=== PATIENT | male | born 1985 | race African-American/Black ===

== ENCOUNTER 2016-09-08 08:08 | Day surgery (SDC) | payer OTHER ==
[2016-09-03 15:33] VITALS: BMI 29.7
[~2016-09-08 08:08] MED LIST: LACTATED RINGERS 1,000 ML IV SCH
[2016-09-08 08:24] VITALS: RESP 16; TEMP 97.5
[2016-09-08] MEDS ORDERED: LIDOCAINE 1% 20 ML VIAL (10MG/ML) FOR IV START INTRADERMA ONE (08:24)
[2016-09-08] MEDS ORDERED: fentaNYL (PF) 50 MCG/ML 2 ML AMP ONE (09:13)
[2016-09-08] MEDS ORDERED: MIDAZOLAM 2 MG/2 ML VIAL ONE (09:13)
[2016-09-08] MEDS ORDERED: PROPOFOL 10 MG/ML 20 ML VIAL IV ONE (09:13)
[2016-09-08 09:42] VITALS: BP 128/88; PULSE 68
--- NOTE | 2016-09-08 10:24 | P.PCN ---
Date of Procedure: 09/08/16 Procedure(s) Performed: Procedure: Esophagogastroduodenoscopy and biopsy. Preoperative diagnosis: Dyspepsia. Postoperative diagnosis: 1. Very small sliding hiatal hernia with no obvious esophagitis or complicated reflux disease. 2. Minimal antral gastritis. 3. Multiple biopsies obtained from the duodenum, antrum and esophagus. Preparation and sedation: Were provided by anesthesia. Brief clinical history: The patient is a 31-year-old male who I have evaluated in the office last April for symptoms of dyspepsia with epigastric pain and frequent belching that he had for around 5 years. He has been on acid suppressive medications for reflux for several years with recurrence of his symptoms when he stops his medications. There was no alarm symptoms. I scheduled this evaluation to assess for esophagitis, complicated reflux disease or other pathology and to guide therapy. Procedure: With the patient on his left lateral decubitus position and after informed consent and adequate sedation, I passed the Olympus-GIF 160 video upper endoscope the cricopharyngeus down the esophagus. GE junction was around 38 cm from the incisors and there was a very small sliding hiatal hernia. The esophagus did not show any erosions, ulcers, strictures or Young's esophagus. The endoscope was then passed into the stomach which was insufflated with air and inspected in detail including the retroflex view in the cardia. There is minimal mottling and erythema in the antrum but no ulcers or erosions. Pyloric channel, duodenal bulb, post bulbar area and descending duodenum appeared within normal limits. Because of his symptoms, I obtained multiple biopsies from the duodenum, antrum and esophagus then the endoscope was withdrawn. The patient tolerated the procedure well. Plan: The patient was reassured. Will await biopsy results. Would schedule follow-up visit with me in the office in few weeks and will try to make additional recommendations based on his course and biopsy results. I will keep you updated on his progress.
== END 2016-09-08 09:59 | disposition home or self-care (01) ==
LOC: ORWHC2ENDO 08:08
DX: K21.0 Gastro-esophageal reflux disease with esophagitis (principal); K44.9 Diaphragmatic hernia without obstruction or gangrene; K29.50 Unspecified chronic gastritis without bleeding; F32.9 Major depressive disorder, single episode, unspecified; Z79.899 Other long term (current) drug therapy
CPT/HCPCS: 88305; 88342; 43239; J2250; J3010; J2704

== ENCOUNTER → 2016-10-03 | Outpatient (CLI) | payer OTHER ==
--- NOTE | 2016-10-06 07:52 | MR ---
EXAMINATION TYPE: MR schulz wo con DATE OF EXAM: 10/03/2016 8:00 PM COMPARISON: NONE HISTORY: CERVICAL PAIN, LUMBAR PAIN CONTRAST: 0 mL intravenous MultiHance. TECHNIQUE: Multiplanar, multisequence images of the lumbar spine were acquired. FINDINGS: Cord terminates at the L1 level. There is disc desiccation L4-5 L5-S1. L5-S1: Disc bulge is present with mild epidural space impingement. No thecal sac impingement is evide nt. No spinal canal stenosis is present. Neural foramen are patent. No spinal canal stenosis. No fo raminal stenosis. . L4-L5: Broad-based disc bulge is present. There is anterior thecal sac flattening. No AP spinal canal stenosis is present. Neural foramen are patent. Facet hypertrophy is present. L3-L4: No significant disc bulge or disc herniation. No spinal canal stenosis. No foraminal stenosi s. . L2-L3: No significant disc bulge or disc herniation. No spinal canal stenosis. No foraminal stenosi s. . L1-L2: No significant disc bulge or disc herniation. No spinal canal stenosis. No foraminal stenosi s. . T12-L1: No significant disc bulge or disc herniation. No spinal canal stenosis. No foraminal stenos is. . IMPRESSION: 1. Disc desiccation and disc bulging L4-5 L5-S1. No thecal sac impingement or nerve root impingement is evident. 2. Facet hypertrophy L4-5. EXAMINATION TYPE: MR jazz cordon con DATE OF EXAM: 10/03/2016 8:00 PM COMPARISON: NONE HISTORY: CERVICAL PAIN, LUMBAR PAIN CONTRAST: Performed utilizing 0 mL intravenous MultiHance gadolinium contrast. TECHNIQUE: Multiplanar multiecho imaging on a 3.0 Yudith magnet is performed through the cervical spin e. Some motion artifact is present. FINDINGS: The craniovertebral junction is normal. There is some crowding with tonsillar and sent to the foramen magnum, a variation which is within normal limits. Vertebral body alignment is straighten ed with some slight kyphosis in the upper cervical spine. C7-T1: No focal disc herniation or significant disc bulge is evident. No spinal canal stenosis is p resent. Mild left foraminal narrowing is present. C6-7: No focal disc herniation or significant disc bulge is evident. No spinal canal stenosis is pre sent. Mild left foraminal narrowing is present. C5-6: No focal disc herniation or significant disc bulge is evident. No spinal canal stenosis or anne ral foraminal stenosis is present. C4-5: Broad-based disc bulge is present with moderate anterior thecal sac compression. This is slight ly greater into the right paracentral region. No AP spinal canal stenosis present. Cord contact is pr esent. No cord deformity is evident. There is moderate right foraminal narrowing from disc bulge. Lef t foramen is patent.. C3-4: No focal disc herniation or significant disc bulge is evident. No spinal canal stenosis or anne ral foraminal stenosis is present. C2-3: No focal disc herniation or significant disc bulge is evident. No spinal canal stenosis or anne ral foraminal stenosis is present. IMPRESSIONS: 1. Mild disc bulging greatest at C4-5. 2. Scattered mild areas of foraminal narrowing discussed above. More moderate foraminal narrowing fro m disc bulge is present C4-5
== END | disposition home or self-care (01) ==
LOC: RADMRIMAIN 18:11
PROVIDERS: ATTEND Psychiatry & Neurology Neurology
DX: M99.71 Connective tissue and disc stenosis of intervertebral foramina of cervical region (principal); M50.221 Other cervical disc displacement at C4-C5 level; M51.27 Other intervertebral disc displacement, lumbosacral region
CPT/HCPCS: 72141; 72148

== ENCOUNTER → 2017-10-06 | Outpatient (CLI) | payer OTHER | END | disposition home or self-care (01) | LOC: CPPFTMAIN 10:51 | PROVIDERS: ATTEND Family Medicine | DX: J98.01 Acute bronchospasm (principal) | CPT/HCPCS: 94010; 94060; 94726; 94729 ==

== ENCOUNTER → 2017-10-29 | Outpatient (CLI) | payer OTHER ==
--- NOTE | 2017-10-29 22:04 | CT ---
EXAMINATION TYPE: CT chest w con DATE OF EXAM: 10/29/2017 COMPARISON: NONE HISTORY: Abnormal pulmonary function test. CT DLP: 311.8 mGycm Automated exposure control for dose reduction was used. CONTRAST: CT scan of the chest is performed with IV Contrast, patient injected with 100 mL of Isovue 300. FINDINGS: LUNGS: The lungs are grossly clear, there is no concerning parenchymal mass or nodule identified. T here is no pleural effusion or pneumothorax seen. The tracheobronchial tree is patent. MEDIASTINUM: There are no greater than 1 cm hilar or mediastinal lymph nodes. No pericardial effusi on is seen. OTHER: No additional significant abnormality is seen. IMPRESSION: No acute process.
== END | disposition home or self-care (01) ==
LOC: RADCTMAIN 10-23 19:15
PROVIDERS: ATTEND Family Medicine
DX: R94.2 Abnormal results of pulmonary function studies (principal)
CPT/HCPCS: 71260; Q9967

== ENCOUNTER → 2018-02-15 | Outpatient (CLI) | payer OTHER ==
--- NOTE | 2018-02-15 16:45 | FL ---
EXAMINATION: Cervical and Thoracic Esophagram DATE OF EXAM: 02/15/2018 CLINICAL INDICATION: 32-year-old male dysphagia and reflux, burning in throat. Recent ENT scope showe d inflammation. COMPARISON: None Total Fluoroscopy Time: 1 minute 31 seconds. Total images: 19 FINDINGS: The swallowing mechanism is normal and hypopharyngeal anatomy is preserved. The cervical and thoracic portions have a normal course and caliber and normal motility. The mucosa is normal and no persistent filling defect is encountered. There is a small hiatal hernia. When the patient is supine entrance to the left, moderate gastroesoph ageal reflux was seen. However, Valsalva maneuver would not duplicate the reflux. IMPRESSION: Small hiatal hernia and a single spontaneous episode of moderate gastroesophageal reflux. This could not be elicited again via Valsalva maneuver.
== END | disposition home or self-care (01) ==
LOC: RADFLWHC 11:04
PROVIDERS: ATTEND Otolaryngology
DX: K44.9 Diaphragmatic hernia without obstruction or gangrene (principal); K21.9 Gastro-esophageal reflux disease without esophagitis
CPT/HCPCS: 74220

== ENCOUNTER → 2020-02-02 | Outpatient (CLI) | payer OTHER | END | disposition home or self-care (01) | LOC: LABWHC1 11:55 | PROVIDERS: ATTEND Internal Medicine | DX: Z03.818 Encounter for observation for suspected exposure to other biological agents ruled out (principal) | CPT/HCPCS: U0003; C9803 ==